=== PATIENT | male | born 1970 | race Caucasian/White ===

== ENCOUNTER → 2016-10-02 | Outpatient (REF) | payer OTHER ==
[2016-10-02 13:40] LABS: BASO % 0.2 % (0.0-1.0); EOS # 0.2 K/mm3 (0.0-0.50); EOS % 3.5 % (0.0-3.0); LARGE UNSTAINED CELL # 0.1 K/mm3 (0.0-0.4); LARGE UNSTAINED CELL % 1.5 % (0.0-4.0); LYMPH # 1.2 K/mm3 (1.5-4.5); LYMPH % 25.7 % (24.0-44.0); MEAN CORPUSCULAR HEMOGLOBIN 29.2 pg (27.0-33.0); MEAN CORPUSCULAR HGB CONC 33.4 g/dl (32.0-36.5); MEAN CORPUSCULAR VOLUME 87.3 fl (80.0-96.0); MONO # 0.3 K/mm3 (0.0-0.8); MONO % 6.4 % (0.0-5.0); NEUTROPHILS # 2.9 K/mm3 (1.8-7.7); NEUTROPHILS % 62.7 % (36.0-66.0); PLATELET COUNT, AUTOMATED 286 k/mm3 (150-450); RED CELL DISTRIBUTION WIDTH 13.6 % (11.5-14.5); WHITE BLOOD COUNT 4.7 K/mm3 (4.0-10.0)
[2016-10-02 13:53] LABS: ALBUMIN 4.2 GM/DL (3.2-5.2); ALBUMIN/GLOBULIN RATIO 1.45 (1.00-1.93); ALKALINE PHOSPHATASE 70 U/L (45-117); ALT/SGPT 35 U/L (12-78); ANION GAP 8 MEQ/L (8-16); AST/SGOT 20 U/L (15-37); BILIRUBIN,TOTAL 0.6 MG/DL (0.2-1.0); BLOOD UREA NITROGEN 17 MG/DL (7-18); CALCIUM LEVEL 8.7 MG/DL (8.5-10.1); CARBON DIOXIDE LEVEL 30 MEQ/L (21-32); CHLORIDE LEVEL 104 MEQ/L (98-107); CHOLESTEROL LEVEL 196 MG/DL (<200); CREATININE FOR GFR 1.06 MG/DL (0.70-1.30); GLOMERULAR FILTRATION RATE > 60.0 (>60); GLUCOSE, FASTING 100 MG/DL (70-105); POTASSIUM SERUM 4.5 MEQ/L (3.5-5.1); SODIUM LEVEL 142 MEQ/L (136-145); TOTAL PROTEIN 7.1 GM/DL (6.4-8.2); TRIGLYCERIDES LEVEL 56 MG/DL (<150)
== END ==
LOC: M SFHCADAM 09:12
PROVIDERS: ATTEND Family Medicine
DX: R10.9 Unspecified abdominal pain (principal); E66.3 Overweight

== ENCOUNTER → 2016-10-04 | Outpatient (REF) | payer OTHER | LOC: M LAB REF 08:00 | PROVIDERS: ATTEND Family Medicine | DX: R10.9 Unspecified abdominal pain (principal); E66.3 Overweight ==

== ENCOUNTER 2018-08-01 07:16 | Emergency (ER) | payer BC, OTHER ==
[~2018-08-01] VITALS: Ht 182.9 cm; Wt 88.6 kg
[2018-08-01] MEDS ORDERED: NS 1,000 ML IV ONE (07:30)
[2018-08-01] MEDS ORDERED: MORPHINE 2 MG/ML 1ML SYRINGE (J2270) IV PRN (07:30)
[2018-08-01] MEDS ORDERED: KETOROLAC 30 MG/ML VIAL (J1885) IV ONE (07:30)
[2018-08-01] MEDS ORDERED: ONDANSETRON 4MG/2ML VIAL (J2405) IV ONE (07:30)
[2018-08-01 08:04] LABS: BASO % 0.2 % (0.0-1.0); EOS # 0.1 10^3/uL (0.0-0.50); EOS % 0.8 % (0.0-3.0); HEMATOCRIT 44.7 % (42.0-52.0); HEMOGLOBIN 16.1 g/dl (13.5-17.5); LYMPH # 1.1 10^3/uL (1.5-4.5); LYMPH % 8.4 % (24.0-44.0); MEAN CORPUSCULAR HEMOGLOBIN 31.5 pg (27.0-33.0); MEAN CORPUSCULAR VOLUME 87.5 fl (80.0-96.0); MONO % 7.8 % (0.0-5.0); NEUTROPHILS # 10.6 10^3/uL (1.8-7.7); NEUTROPHILS % 82.5 % (36.0-66.0); PLATELET COUNT, AUTOMATED 247 10^3/uL (150-450); RED BLOOD COUNT 5.11 10^6/uL (4.30-6.10); WHITE BLOOD COUNT 12.8 10^3/uL (4.0-10.0)
[2018-08-01] MEDS ORDERED: CIPROFLOXACIN 400 MG in APPROPRIATE DILUENT 1 EA IV ONE (08:45)
[2018-08-01] MEDS ORDERED: metroNIDAZOLE 500 MG in APPROPRIATE DILUENT 1 EA IV ONE (08:45)
--- NOTE | 2018-08-01 08:45 | REP ---
CT abdomen and pelvis without IV or oral contrast: History: Left lower quadrant pain. Trace of blood. 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 The lung bases are essentially clear. The liver and the spleen are normal in size, homogeneous in texture. No adrenal lesion is seen. The pancreas is unremarkable. No abnormalities noted in the gallbladder. There is diverticulosis affecting the transverse, descending and sigmoid segments of the colon. There is an acute diverticulitis pattern in the distal descending colon with pericolonic fat streaking and some adjacent pericolic gutter fluid. No free air or abscess is seen. Mural thickening is noted. Pericolonic inflammation is seen. There are dystrophic calcifications in the prostate gland. Urinary bladder is unremarkable. A normal appendix is seen in the right lower quadrant. No hydronephrosis is seen. Impression: Findings consistent with acute diverticulitis of the distal descending colon with adjacent pericolic gutter fluid, mural thickening, pericolonic fat streaking. No evidence of free air or abscess. Electronically Signed by Manan Skelton MD 08/01/2018 10:55 A
[2018-08-01 09:16] LABS: BLOOD UREA NITROGEN 13 MG/DL (7-18); CALCIUM LEVEL 8.8 MG/DL (8.5-10.1); CARBON DIOXIDE LEVEL 25 MEQ/L (21-32); CHLORIDE LEVEL 105 MEQ/L (98-107); CREATININE FOR GFR 0.97 MG/DL (0.70-1.30); GLOMERULAR FILTRATION RATE > 60.0 (>60); GLUCOSE, FASTING 94 MG/DL (70-100); POTASSIUM SERUM 4.1 MEQ/L (3.5-5.1); SODIUM LEVEL 139 MEQ/L (136-145)
[2018-08-01 09:17] LABS: ALBUMIN 3.9 GM/DL (3.2-5.2); ALT/SGPT 29 U/L (12-78); BILIRUBIN,DIRECT 0.3 MG/DL (0.0-0.2); BILIRUBIN,TOTAL 1.3 MG/DL (0.2-1.0); LIPASE 99 U/L (73-393); TOTAL PROTEIN 7.3 GM/DL (6.4-8.2)
[2018-08-01] MEDS ORDERED: FLAG500T PO (11:13)
[2018-08-01] MEDS ORDERED: ZOFR4TAB14 PO (11:13)
[2018-08-01] MEDS ORDERED: CIPR-249 PO (11:13)
[2018-08-01 11:22] VITALS: BP 114/62
--- NOTE | 2018-08-02 12:36 | ED PDOC ---
Post-Departure Follow-Up scooter cornelius and dr delgadillo faxed formal report of ct abd/p for fu Shalom Hi MD Aug 02, 2018 12:36
== END 2018-08-01 11:29 | disposition home or self-care (01) ==
LOC: M ED 07:16
DX: R07.89 Other chest pain (principal); I48.91 Unspecified atrial fibrillation; R74.8 Abnormal levels of other serum enzymes; M06.9 Rheumatoid arthritis, unspecified
CPT/HCPCS: 74176; 80048; 80076; 81001; 83690; 85025; 93041; 96374; 96375; 99285; J0744; J1885; J2405

== ENCOUNTER 2021-12-02 05:45 | Emergency (ER) | payer BC ==
[~2021-12-02] VITALS: Ht 182.9 cm; Wt 91.2 kg
[~2021-12-02 05:45] MED LIST: CIPR-249 PO; FLAG500T PO; ZOFR4TAB14 PO
[2021-12-02] MEDS ORDERED: CLAR1TAB13 PO (05:58)
[2021-12-02] MEDS ORDERED: NS 1,000 ML IV ONE (07:15)
[2021-12-02] MEDS ORDERED: ONDANSETRON 4MG/2ML VIAL IV ONE (07:15)
[2021-12-02 07:39] LABS: APPEARANCE, URINE CLEAR (CLEAR); BACTERIA, URINE AUTO NEGATIVE (NEGATIVE); BILIRUBIN, URINE AUTO NEGATIVE (NEGATIVE); BLOOD, URINE BLOOD NEGATIVE (NEGATIVE); COLOR, URINE YELLOW (YELLOW); GLUCOSE, URINE (UA) AUTO NEGATIVE (NEGATIVE); KETONE, URINE AUTO NEGATIVE (NEGATIVE); LEUKOCYTE ESTERASE, URINE AUTO NEGATIVE (NEGATIVE); NITRITE, URINE AUTO NEGATIVE (NEGATIVE); PROTEIN, URINE AUTO NEGATIVE (NEGATIVE); RBC, URINE AUTO 0 /HPF (0-3); SPECIFIC GRAVITY URINE AUTO 1.004 (1.002-1.035); SQUAMOUS EPITHELIAL CELL UR AU 0 /HPF (0-6); UROBILINOGEN, URINE AUTO 0.2 mg/dL (0.0-2.0); WBC, URINE AUTO 0 /HPF (0-3)
[2021-12-02 07:40] LABS: BASO % 0.2 % (0.0-1.0); EOS # 0.1 10^3/uL (0.0-0.5); EOS % 1.5 % (0.0-3.0); HEMATOCRIT 42.7 % (42.0-52.0); HEMOGLOBIN 14.5 g/dl (13.5-17.5); LYMPH # 0.8 10^3/uL (1.5-5.0); LYMPH % 12.6 % (24.0-44.0); MEAN CORPUSCULAR VOLUME 85.4 fl (80.0-96.0); MONO # 0.5 10^3/uL (0.0-0.8); MONO % 8.2 % (2.0-8.0); NEUTROPHILS # 4.6 10^3/uL (1.5-8.5); PLATELET COUNT, AUTOMATED 272 10^3/uL (150-450)
[2021-12-02] MEDS ORDERED: ISOVUE-370 76% 100ML VIAL As Ordered ONE (07:48)
[2021-12-02] MEDS ORDERED: metroNIDAZOLE (FLAGYL) 500MG TABLET PO ONE (08:35)
[2021-12-02] MEDS ORDERED: CIPROFLOXACIN 400 MG in IV 1 EA IV ONE (08:35)
[2021-12-02] MEDS ORDERED: ONDA4TAB6 PO (09:31)
[2021-12-02] MEDS ORDERED: PROT1TAB2 PO (09:32)
[2021-12-02] MEDS ORDERED: METR-265 PO (09:36)
[2021-12-02] MEDS ORDERED: CIPR-249 PO (09:36)
[2021-12-02 09:37] VITALS: BP 110/69
== END 2021-12-02 10:02 | disposition home or self-care (01) ==
LOC: M ED 05:45
DX: K57.92 Diverticulitis of intestine, part unspecified, without perforation or abscess without bleeding (principal)
CPT/HCPCS: 74177; 80047; 81001; 85025; 96361; 96365; 96375; 99284; J0744; J2405; Q9967

== ENCOUNTER → 2023-07-08 | Outpatient (CLI) | payer BC ==
[~2023-07-08] MED LIST changes: +CLAR1TAB13 PO; +METR-265 PO; +ONDA4TAB6 PO; +PROT1TAB2 PO
== END ==
LOC: M EKG 13:57
PROVIDERS: ATTEND Physician Assistant
DX: R00.2 Palpitations (principal)